=== PATIENT | male | born 1995 | race Two or more races ===

== ENCOUNTER 2022-08-29 03:27 | Emergency (ER) | payer OTHER ==
[~2022-08-29] VITALS: Ht 175.3 cm; Wt 90.7 kg
[2022-08-29] MEDS ORDERED: IRBESARTAN150 MG PO (03:58)
[2022-08-29] MEDS ORDERED: MEDROLPACK PO (10:49)
[2022-08-29] MEDS ORDERED: MUCINEX DM ER1 EAC1 PO (10:49)
== END 2022-08-29 10:55 | disposition home or self-care (01) ==
LOC: ER 03:27
DX: R07.81 Pleurodynia (principal)